=== PATIENT | female | born 1980 | race Two or more races ===

== ENCOUNTER 2024-01-04 21:11 | Emergency (ER) | payer OTHER ==
[~2024-01-04] VITALS: Ht 157.5 cm; Wt 54.4 kg
[2024-01-04] MEDS ORDERED: KETOROLAC TROMETHAMINE 30 MG VIAL ONE (23:14)
[2024-01-04] MEDS ORDERED: KETOROLAC TROMETHAMINE 30 MG VIAL IM ONE (23:15)
== END 2024-01-05 00:02 | disposition home or self-care (01) ==
LOC: ER 21:13
DX: S99.821A Other specified injuries of right foot, initial encounter (principal); X58.XXXA Exposure to other specified factors, initial encounter; Y93.89 Activity, other specified; Y92.89 Other specified places as the place of occurrence of the external cause